=== PATIENT | female | born 1975 | race Caucasian/White ===

== ENCOUNTER 2020-04-11 04:16 | Emergency (ER) | payer MEDICAID ==
[~2020-04-11] VITALS: Ht 162.6 cm; Wt 71.5 kg
[2020-04-11] MEDS ORDERED: ACETAMINOPHEN 500MG TABLET PO ONE (04:45)
[2020-04-11 05:09] LABS: BASOPHILS % 0.2 % (0.0-2.0); HEMATOCRIT. 31.4 % (36.0-48.0); HEMOGLOBIN. 11.4 g/dL (12.0-16.0); MEAN PLATELET VOLUME 9.7 fl (7.4-10.4); MONOCYTES % 5.8 % (2.0-8.0); PLATELET 189 x1000/uL (130-400); RED BLOOD CELL COUNT 3.33 mill/uL (4.2-5.4); RED CELL DISTRIBUTION WIDTH 13.6 % (11.6-14.6)
[2020-04-11 05:15] LABS: CHLORIDE 106 mEq/L (98-107)
[2020-04-11 05:21] LABS: INR 0.9; PROTHROMBIN TIME 10.2 sec (9.6-11.0)
[2020-04-11 05:40] LABS: B-HCG QUANTITATIVE 116368 mIU/mL (<3); MEAN CORPUSCULAR HEMOGLOBIN 33.4 pg (28.0-32.0); MEAN CORPUSCULAR VOLUME 96.1 fL (81.0-99.0)
[2020-04-11 07:16] VITALS: BP 115/83
== END 2020-04-11 07:18 | disposition home or self-care (01) ==
LOC: ER 04:16
DX: O20.0 Threatened abortion (principal); O44.02 Complete placenta previa NOS or without hemorrhage, second trimester; O30.002 Twin pregnancy, unspecified number of placenta and unspecified number of amniotic sacs, second trimester; O09.522 Supervision of elderly multigravida, second trimester; Z3A.14 14 weeks gestation of pregnancy
CPT/HCPCS: 36415; 76805; 76810; 80053; 81025; 84702; 85025; 86850; 86900; 99284

== ENCOUNTER 2020-04-11 10:17 | Emergency (ER) | payer MEDICAID ==
[~2020-04-11] VITALS: Ht 170.2 cm; Wt 78.0 kg
[2020-04-11 11:36] LABS: HEMATOCRIT 31.6 % (36.0-48.0); HEMOGLOBIN 11.4 g/dL (12.0-16.0)
[2020-04-11 12:07] VITALS: BP 93/56
== END 2020-04-11 12:19 | disposition home or self-care (01) ==
LOC: ER 10:31
DX: O20.0 Threatened abortion (principal); O09.522 Supervision of elderly multigravida, second trimester; Z3A.14 14 weeks gestation of pregnancy
CPT/HCPCS: 36415; 81025; 85014; 85018; 99283

== ENCOUNTER 2020-08-08 12:06 | Observation (INO) | payer MEDICAID ==
[~2020-08-08] VITALS: Ht 154.9 cm; Wt 82.6 kg
[2020-08-08] MEDS ORDERED: LACTATED RINGERS 1,000 ML IV SCH (14:06)
[2020-08-08] MEDS ORDERED: BETAMETHASONE ACET/BETAMET 30 MG/5 ML VIAL IM NR (14:06)
[2020-08-08 15:18] LABS: CLARITY URINE CLEAR (CLEAR); COLOR URINE DARK YELLOW (YELLOW); KETONES URINE NEGATIVE (NEGATIVE); LEUKOCYTE ESTERASE URINE 1+ (NEGATIVE); NITRITE URINE NEGATIVE (NEGATIVE); OCCULT BLOOD URINE NEGATIVE (NEGATIVE); PROTEIN URINE NEGATIVE (NEGATIVE); SPECIFIC GRAVITY URINE 1.013 (1.005-1.030)
[2020-08-08] MEDS ORDERED: TERBUTALINE SULFATE 1MG/ML VIAL SUBCUT PRN (17:00)
[2020-08-08] MEDS ORDERED: NIFEDIPINE 10MG CAPSULE PO PRN (17:00)
[2020-08-08] MEDS ORDERED: PREN-15 PO (18:10)
[2020-08-08] MEDS ORDERED: FERR325T6 PO (18:10)
== END 2020-08-08 18:35 | disposition home or self-care (01) ==
LOC: 8EST NSY 12:06
PROVIDERS: ADMIT Obstetrics & Gynecology; ATTEND Obstetrics & Gynecology
DX: O26.893 Other specified pregnancy related conditions, third trimester (principal); R68.83 Chills (without fever); Z3A.31 31 weeks gestation of pregnancy
CPT/HCPCS: 36415; 59025; 80076; 81003; 82239; 96360; 96361; 96372; G0378; J0702; J3105; 59412; 99281

== ENCOUNTER 2020-08-23 18:50 | Observation (INO) | payer MEDICAID ==
[~2020-08-23] VITALS: Ht 162.6 cm; Wt 83.9 kg
[~2020-08-23 18:50] MED LIST: FERR325T6 PO; PREN-15 PO
[2020-08-23] MEDS ORDERED: LACTATED RINGERS 1,000 ML IV SCH (20:30)
[2020-08-23] MEDS ORDERED: URSO300C4 PO (20:31)
[2020-08-23] MEDS ORDERED: NIFEDIPINE 10MG CAPSULE PO NR (23:15)
== END 2020-08-24 01:45 | disposition home or self-care (01) ==
LOC: 8 EST LDRP 18:50
PROVIDERS: ADMIT Obstetrics & Gynecology; ATTEND Obstetrics & Gynecology
DX: O62.9 Abnormality of forces of labor, unspecified (principal); O26.893 Other specified pregnancy related conditions, third trimester; L29.9 Pruritus, unspecified; Z3A.37 37 weeks gestation of pregnancy
CPT/HCPCS: 59025; 76805; 76810; 76818; 96360; 96361; G0378; J7120; 76815; 99281

== ENCOUNTER 2020-08-26 00:17 | Inpatient (IN) | payer MEDICAID, OTHER ==
[~2020-08-26] VITALS: Ht 154.9 cm; Wt 83.9 kg
[~2020-08-26 00:17] MED LIST changes: +URSO300C4 PO
[2020-08-26] MEDS ORDERED: METHYLERGONOVINE MALEATE 0.2 MG/ML IM PRN (01:15)
[2020-08-26] MEDS ORDERED: CARBOPROST TROMETHAMINE 250 MCG/ML AMPUL IM PRN (01:15)
[2020-08-26] MEDS ORDERED: LACTATED RINGERS 1,000 ML IV SCH ×2 (01:15→02:00)
[2020-08-26] MEDS ORDERED: NALOXONE HCL 0.4 MG/ML 1ML VIAL IM PRN (01:15)
[2020-08-26 01:51] LABS: HEMATOCRIT. 35.9 % (36.0-48.0); HEMOGLOBIN. 12.3 g/dL (12.0-16.0); MEAN CORPUSCULAR HEMOGLOBIN 34.2 pg (28.0-32.0); MEAN CORPUSCULAR VOLUME 99.4 fL (81.0-99.0); MEAN PLATELET VOLUME 9.9 fl (7.4-10.4); PLATELET 109 x1000/uL (130-400); RED BLOOD CELL COUNT 3.61 mill/uL (4.2-5.4)
[2020-08-26 01:59] LABS: CLARITY URINE CLEAR (CLEAR); COLOR URINE YELLOW (YELLOW); KETONES URINE NEGATIVE (NEGATIVE); LEUKOCYTE ESTERASE URINE TRACE (NEGATIVE); NITRITE URINE NEGATIVE (NEGATIVE); OCCULT BLOOD URINE 1+ (NEGATIVE); PH URINE 5.5 (4.5-8.0); PROTEIN URINE NEGATIVE (NEGATIVE); SPECIFIC GRAVITY URINE 1.012 (1.005-1.030); UROBILINOGEN URINE 0.2 E.U./dL (0.2-1.0)
[2020-08-26] MEDS ORDERED: DEXT 5%/LR + PITOCIN 20UNITS/L 1,000 ML IV SCH ×2 (02:00→05:00)
[2020-08-26] MEDS ORDERED: MISOPROSTOL 100MCG TABLET VG SCH (02:00)
[2020-08-26 02:06] LABS: INR 0.9; PARTIAL THROMBOPLASTIN TIME 25.7 sec (23.4-31.0); PROTHROMBIN TIME 9.7 sec (9.6-11.0)
[2020-08-26] MEDS ORDERED: CITRIC ACID/SODIUM CITRATE SOLN 30ML UDC PO NR (02:45)
[2020-08-26 03:00] LABS: *AMPHETAMINES SCREEN URINE NEGATIVE (NEGATIVE); *BARBITURATES SCREEN URINE NEGATIVE (NEGATIVE); *BENZODIAZEPINES SCREEN URINE NEGATIVE (NEGATIVE); *COCAINE SCREEN URINE NEGATIVE (NEGATIVE); CANNABINOID URINE SCREEN NEGATIVE (NEGATIVE); METHADONE URINE SCREEN NEGATIVE (NEGATIVE); OPIATES URINE SCREEN NEGATIVE (NEGATIVE); PHENCYCLIDINE URINE SCREEN NEGATIVE (NEGATIVE)
[2020-08-26] MEDS ORDERED: KETOROLAC 60MG/2ML VIAL IM ONE (03:00)
[2020-08-26] MEDS ORDERED: CEFAZOLIN SODIUM 1000MG/VIAL ONE (03:00)
[2020-08-26] MEDS ORDERED: FENTANYL CITRATE/PF 50MCG/ML 2ML VIAL ONE (03:00)
[2020-08-26] MEDS ORDERED: ONDANSETRON HCL 4MG/2ML INJ ONE (03:00)
[2020-08-26] MEDS ORDERED: OXYTOCIN 10 UNITS/ML 1ML ONE ×2 (03:00→03:37)
[2020-08-26] MEDS ORDERED: MORPHINE SULFATE/PF 1MG/ML 10ML AMP ONE (03:00)
[2020-08-26 03:21] LABS: HEPATITIS B SURFACE ANTIGEN NEGATIVE
[2020-08-26] MEDS ORDERED: DIPHENHYDRAMINE 50MG/ML VIAL ONE (03:39)
[2020-08-26] MEDS ORDERED: BUTORPHANOL TARTRATE 2 MG/ML VIAL IM PRN (04:00)
[2020-08-26] MEDS ORDERED: MORPHINE SULFATE 2 MG/ML CPJ (NOT FOR IM USE) IV PRN (04:00)
[2020-08-26] MEDS ORDERED: FENTANYL CITRATE/PF 50MCG/ML 2ML VIAL IV PRN (04:00)
[2020-08-26] MEDS ORDERED: HYDROCODONE/ACETAMINOPHEN 5/325MG TABLET PO PRN (05:00)
[2020-08-26] MEDS ORDERED: BISACODYL 10MG SUPP PR PRN (05:00)
[2020-08-26] MEDS ORDERED: HEMORRHOIDAL SUPP PR PRN (05:00)
[2020-08-26] MEDS ORDERED: ONDANSETRON HCL 4MG/2ML INJ IV PRN (05:00)
[2020-08-26] MEDS ORDERED: IBUPROFEN 400MG TABLET PO PRN (05:00)
[2020-08-26] MEDS ORDERED: LANOLIN OINT 7GM TUBE TOP PRN (05:00)
[2020-08-26 05:23] LABS: PLATELET ESTIMATE SLIGHTLY DECREASED
[2020-08-26 06:00] VITALS: BP 132/74
[2020-08-26] MEDS ORDERED: DEXT 5%/LACTATED RINGERS 1,000 ML IV SCH (06:00)
[2020-08-26] MEDS ORDERED: DIPHENHYDRAMINE 50MG/ML VIAL IM PRN (06:19)
[2020-08-26 06:30] VITALS: BP 122/80
[2020-08-26 07:30] VITALS: BP 119/68
[2020-08-26] MEDS: URSODIOL 300MG CAPSULE PO SCH ×2 (08:01→17:45)
[2020-08-26] MEDS: SIMETHICONE 80MG TABLET CHEW PO SCH ×4 (08:01→21:01)
[2020-08-26] MEDS: PRENATAL VIT/FE FUMARATE/FA TABLET PO SCH (08:52)
[2020-08-26] MEDS ORDERED: KETOROLAC 30MG/ML VIAL IV PRN (10:00)
[2020-08-26] MEDS ORDERED: CEFAZOLIN 2,000 MG in DEXT 5% WATER 100 ML IV SCH (12:00)
[2020-08-26 12:14] LABS: BASOPHILS % 0.2 % (0.0-2.0); EOSINOPHILS % 0.2 % (0.0-5.0); HEMATOCRIT. 34.1 % (36.0-48.0); HEMOGLOBIN. 11.8 g/dL (12.0-16.0); LYMPHOCYTES % 14.2 % (20.0-50.0); MEAN CORPUSCULAR HEMOGLOBIN 34.1 pg (28.0-32.0); MEAN CORPUSCULAR VOLUME 98.5 fL (81.0-99.0); MEAN PLATELET VOLUME 11.3 fl (7.4-10.4); MONOCYTES % 6.2 % (2.0-8.0); NEUTROPHILS % 79.2 % (40.0-76.0); PLATELET 105 x1000/uL (130-400); RED BLOOD CELL COUNT 3.47 mill/uL (4.2-5.4); RED CELL DISTRIBUTION WIDTH 13.7 % (11.6-14.6)
[2020-08-26 15:30] VITALS: BP 135/77
[2020-08-26 20:15] VITALS: BP 134/65
[2020-08-26] MEDS: DOCUSATE SODIUM 100MG CAPSULE PO SCH (21:01)
[2020-08-26] MEDS: DIPHENHYDRAMINE 25MG CAPSULE PO PRN (23:21)
[2020-08-27] VITALS: BP 128/73
[2020-08-27] MEDS: DIPHENHYDRAMINE 25MG CAPSULE PO PRN (04:19)
[2020-08-27 04:20] VITALS: BP 138/80
[2020-08-27 06:37] LABS: BASOPHILS % 0.2 % (0.0-2.0); EOSINOPHILS % 0.6 % (0.0-5.0); HEMATOCRIT. 34.7 % (36.0-48.0); HEMOGLOBIN. 11.6 g/dL (12.0-16.0); LYMPHOCYTES % 13.5 % (20.0-50.0); MEAN CORPUSCULAR HEMOGLOBIN 33.4 pg (28.0-32.0); MEAN CORPUSCULAR VOLUME 99.4 fL (81.0-99.0); MEAN PLATELET VOLUME 11.1 fl (7.4-10.4); MONOCYTES % 6.9 % (2.0-8.0); NEUTROPHILS % 78.8 % (40.0-76.0); PLATELET 112 x1000/uL (130-400); RED BLOOD CELL COUNT 3.49 mill/uL (4.2-5.4); RED CELL DISTRIBUTION WIDTH 14.2 % (11.6-14.6)
[2020-08-27 08:00] VITALS: BP 117/58
[2020-08-27] MEDS: FERROUS SULFATE 325MG TABLET PO SCH ×3 (08:09→17:44)
[2020-08-27] MEDS: URSODIOL 300MG CAPSULE PO SCH ×2 (08:09→17:44)
[2020-08-27] MEDS: PRENATAL VIT/FE FUMARATE/FA TABLET PO SCH (08:09)
[2020-08-27] MEDS: SIMETHICONE 80MG TABLET CHEW PO SCH ×4 (08:09→20:55)
[2020-08-27] MEDS: IBUPROFEN 800MG TABLET PO PRN ×2 (08:10→17:43)
[2020-08-27 12:00] VITALS: BP 109/63
[2020-08-27] MEDS ORDERED: DIPHENHYDRAMINE 25MG CAPSULE PO PRN (13:00)
[2020-08-27 16:00] VITALS: BP 105/60
[2020-08-27 20:00] VITALS: BP 122/74
[2020-08-27] MEDS: DOCUSATE SODIUM 100MG CAPSULE PO SCH (20:52)
[2020-08-28 06:00] VITALS: BP 119/71
[2020-08-28] MEDS: IBUPROFEN 800MG TABLET PO PRN ×3 (06:38→18:00)
[2020-08-28 08:00] VITALS: BP 124/70
[2020-08-28] MEDS: PRENATAL VIT/FE FUMARATE/FA TABLET PO SCH (08:51)
[2020-08-28] MEDS: SIMETHICONE 80MG TABLET CHEW PO SCH ×5 (08:51→22:08)
[2020-08-28] MEDS: URSODIOL 300MG CAPSULE PO SCH ×2 (08:51→18:00)
[2020-08-28] MEDS: FERROUS SULFATE 325MG TABLET PO SCH ×3 (08:51→18:00)
[2020-08-28 15:39] VITALS: BP 130/60
[2020-08-28 20:00] VITALS: BP_SYST 120; BP_SYST 20; BP_DIAS 59
[2020-08-28] MEDS: DOCUSATE SODIUM 100MG CAPSULE PO SCH (21:00)
[2020-08-29 05:50] VITALS: BP 121/61
[2020-08-29 07:27] VITALS: BP 140/72
[2020-08-29] MEDS: IBUPROFEN 800MG TABLET PO PRN (09:44)
[2020-08-29] MEDS: FERROUS SULFATE 325MG TABLET PO SCH (09:44)
[2020-08-29] MEDS: PRENATAL VIT/FE FUMARATE/FA TABLET PO SCH (09:45)
[2020-08-29] MEDS: SIMETHICONE 80MG TABLET CHEW PO SCH (09:45)
[2020-08-29] MEDS: URSODIOL 300MG CAPSULE PO SCH (09:46)
== END 2020-08-29 10:30 | disposition home or self-care (01) | DRG 540 ==
LOC: OBSVTOIN 00:17 → 8 EST LDRP 00:17 → 8EST 06:00
PROVIDERS: ADMIT Obstetrics & Gynecology; ATTEND Obstetrics & Gynecology
PROC: 10D00Z1 Extraction of Products of Conception, Low, Open Approach (ICD-10-PCS; principal; 2020-08-26)
DX: O30.043 Twin pregnancy, dichorionic/diamniotic, third trimester (principal); O26.62 Liver and biliary tract disorders in childbirth; O77.0 Labor and delivery complicated by meconium in amniotic fluid; O42.913 Preterm premature rupture of membranes, unspecified as to length of time between rupture and onset of labor, third trimester; O76 Abnormality in fetal heart rate and rhythm complicating labor and delivery; O32.1XX0 Maternal care for breech presentation, not applicable or unspecified; O34.211 Maternal care for low transverse scar from previous cesarean delivery; K83.1 Obstruction of bile duct; Z3A.34 34 weeks gestation of pregnancy; Z37.2 Twins, both liveborn
CPT/HCPCS: 36415; 80305; 81003; 85025; 86592; 86703; 86762; 86850; 86900; 86920; 87340; 88304; 88307; 99281; J0595; J0690; J1200; J1885; J2274; J2405; J2590; J3010; J7060; J7120; J7121; Q0163